=== PATIENT | male | born 1975 | race Caucasian/White ===

== ENCOUNTER 2016-07-02 13:52 | Emergency (ER) | payer SELFPAY ==
[~2016-07-02] VITALS: Ht 165.1 cm; Wt 90.7 kg
[~2016-07-02 13:52] MED LIST: ALBUTEROL0.09 MG/A2 IH; ANTIVERT/2525 MG PO; AUGMENTIN 875875 MG PO; COMPAZINE10 MG PO; DAYPRO600 M1 PO; FLONASE ALLERG9.9 ML NS; IBU-8800 MG PO; Motrin,Rufen800 MG PO; NAPROSYN500 MG PO; NKHM; OTC MEDS; PENICILLIN250 MG PO; PRILOSEC20 M2 PO; Peridex 473 ML473 ML PO; TRAMADOL HCL50 MG PO; ULTRAM50 MG PO; VIBRAMYCIN100 MG PO; ZANTAC 150150 MG PO; ZYRTEC10 MG PO
[2016-07-02 14:49] LABS: BILIRUBIN NEGATIVE (NEGATIVE); BLOOD TRACE-INTACT (NEGATIVE); CLARITY CLEAR (CLEAR); COLOR YELLOW (YELLOW); GLUCOSE NEGATIVE (NEGATIVE); KETONE NEGATIVE (NEGATIVE); LEUKO ESTERASE 1+ (NEGATIVE); NITRITE NEGATIVE (NEGATIVE); PH 5.5 (5.0-9.0); PROTEIN NEGATIVE (NEGATIVE); SPECIFIC GRAVITY 1.025 (1.005-1.030); UROBILINOGEN 0.2 E.U./dl (0.2-1.0)
[2016-07-02 15:02] LABS: MUCOUS TRACE; URINE REFLEX COMMENT YES (NO)
[2016-07-02 15:35] LABS: BASO % 0.5 % (0.0-1.0); EOS # 0.4 10*3/uL (0.0-0.4); EOS % 4.8 % (1.0-4.0); HEMATOCRIT 47.7 % (42.0-52.0); HEMOGLOBIN 16.7 g/dl (14.0-18.0); LYMPH # 2.7 10*3/uL (1.3-4.4); LYMPH % 33.7 % (27.0-41.0); MEAN CELL VOLUME 96.4 fl (80.0-94.0); MEAN CORPUSCULAR HGB 33.7 pg (27.0-31.0); MEAN PLATELET VOLUME 10.3 fl (9.6-12.3); MONO # 0.6 10*3/uL (0.1-1.0); MONO % 7.6 % (3.0-9.0); NEUT # 4.3 10*3/uL (2.3-7.9); PLATELET COUNT AUTOMATED 187 10*3/uL (130-400); RED BLOOD COUNT 4.95 10*6/uL (4.50-5.90); RED CELL DISTRI WIDTH 12.1 % (0-14.5); WHITE BLOOD COUNT 8.1 10*3/uL (4.8-10.8)
[2016-07-02 15:51] LABS: ALKALINE PHOSPHATASE 52 U/L (45-117); BILIRUBIN, TOTAL 0.9 mg/dl (0.2-1.0); BUN 13 mg/dl (7-24); CARBON DIOXIDE 25 mmol/L (21-32); CHLORIDE 107 mmol/L (98-107); EST GLOM FILT AFRICAN AMERICAN > 60 ml/min; GLUCOSE 92 mg/dL (65-99); POTASSIUM 4.2 mmol/L (3.5-5.1); SGOT/AST 54 IU/L (3-35); SGPT/ALT 111 U/L (12-78); SODIUM 141 mmol/L (136-145); TOTAL PROTEIN 8.1 gm/dL (6.4-8.2)
[2016-07-02] MEDS ORDERED: ANAPROX DS550 MG PO (16:34)
[2016-07-02] MEDS ORDERED: OMNICEF300 MG PO (16:48)
== END 2016-07-02 17:10 | disposition home or self-care (01) ==
LOC: ED 13:52
PROVIDERS: Physician Assistant
DX: N30.01 Acute cystitis with hematuria (principal)

== ENCOUNTER 2017-08-12 14:40 | Emergency (ER) | payer SELFPAY ==
[~2017-08-12] VITALS: Ht 165.1 cm; Wt 90.7 kg
[~2017-08-12 14:40] MED LIST changes: +ANAPROX DS550 MG PO; +OMNICEF300 MG PO
[2017-08-12 15:13] LABS: BASO % 0.4 % (0.0-1.0); EOS # 0.2 10*3/uL (0.0-0.4); EOS % 1.9 % (1.0-4.0); HEMATOCRIT 47.1 % (42.0-52.0); HEMOGLOBIN 16.3 g/dl (14.0-18.0); LYMPH # 1.9 10*3/uL (1.3-4.4); LYMPH % 16.7 % (27.0-41.0); MEAN CELL VOLUME 95.3 fl (80.0-94.0); MEAN CORPUSCULAR HGB CONC 34.6 g/dl (33.0-37.0); MONO # 0.6 10*3/uL (0.1-1.0); MONO % 5.3 % (3.0-9.0); NEUT # 8.6 10*3/uL (2.3-7.9); NEUT % 75.3 % (47.0-73.0); PLATELET COUNT AUTOMATED 190 10*3/uL (130-400); RED BLOOD COUNT 4.94 10*6/uL (4.50-5.90); RED CELL DISTRI WIDTH 11.9 % (0-14.5); WHITE BLOOD COUNT 11.4 10*3/uL (4.8-10.8)
[2017-08-12 15:22] LABS: ACT PARTIAL THROMBO TIME 20.3 SECONDS (20.8-31.5)
[2017-08-12 15:30] LABS: ALBUMIN 4.1 gm/dl (3.1-4.5); ALKALINE PHOSPHATASE 63 U/L (45-117); BUN 14 mg/dl (7-24); CHLORIDE 105 mmol/L (98-107); CREATININE 1.31 mg/dL (0.70-1.30); POTASSIUM 4.2 mmol/L (3.5-5.1); SGOT/AST 59 IU/L (3-35); SGPT/ALT 112 U/L (12-78); SODIUM 137 mmol/L (136-145); TOTAL PROTEIN 8.5 gm/dL (6.4-8.2)
[2017-08-12 16:27] LABS: BILIRUBIN NEGATIVE (NEGATIVE); BLOOD NEGATIVE (NEGATIVE); CLARITY CLEAR (CLEAR); COLOR YELLOW (YELLOW); GLUCOSE NEGATIVE (NEGATIVE); KETONE NEGATIVE (NEGATIVE); LEUKO ESTERASE NEGATIVE (NEGATIVE); NITRITE NEGATIVE (NEGATIVE); PH 5.5 (5.0-9.0); SPECIFIC GRAVITY >= 1.030 (1.005-1.030); UROBILINOGEN 0.2 E.U./dl (0.2-1.0)
[2017-08-12 16:34] LABS: BACTERIA 1+
[2017-08-12 16:36] LABS: URINE AMPHETAMINES < 1000 (1000ng/ml); URINE BARBITURATES < 200 (200ng/ml); URINE BENZODIAZEPINES < 200 (200ng/ml); URINE CANNABINOIDS (THC) > 50 (50ng/ml); URINE COCAINE > 300 (300ng/ml); URINE METHADONE < 300 (300ng/ml); URINE OPIATES > 300 (300ng/ml); URINE PHENCYCLIDINE < 25 (25ng/ml)
[2017-08-12] MEDS ORDERED: NORCO 5-325 TA1 EACH PO (18:40)
== END 2017-08-12 19:03 | disposition home or self-care (01) ==
LOC: ED 14:40
PROVIDERS: Physician Assistant
DX: S32.018A Other fracture of first lumbar vertebra, initial encounter for closed fracture (principal); S32.028A Other fracture of second lumbar vertebra, initial encounter for closed fracture; S32.038A Other fracture of third lumbar vertebra, initial encounter for closed fracture; S32.048A Other fracture of fourth lumbar vertebra, initial encounter for closed fracture; R07.89 Other chest pain; R10.84 Generalized abdominal pain; Z98.890 Other specified postprocedural states; Z79.899 Other long term (current) drug therapy; W20.8XXA Other cause of strike by thrown, projected or falling object, initial encounter; Y93.89 Activity, other specified; Y92.89 Other specified places as the place of occurrence of the external cause; Y99.9 Unspecified external cause status

== ENCOUNTER 2019-07-15 09:55 | Emergency (ER) | payer SELFPAY ==
[~2019-07-15] VITALS: Ht 165.1 cm; Wt 90.7 kg
[~2019-07-15 09:55] MED LIST changes: +NORCO 5-325 TA1 EACH PO
[2019-07-15] MEDS ORDERED: NORCO 5-325 TA1 EACH PO (11:43)
[2019-07-15] MEDS ORDERED: DOXYCYCLINE100 M3 PO (11:43)
== END 2019-07-15 11:55 | disposition home or self-care (01) ==
LOC: ED 09:55
DX: L05.01 Pilonidal cyst with abscess (principal)

== ENCOUNTER 2019-12-22 22:05 | Emergency (ER) | payer SELFPAY ==
[~2019-12-22] VITALS: Ht 172.7 cm; Wt 95.3 kg
[~2019-12-22 22:05] MED LIST changes: +DOXYCYCLINE100 M3 PO
[2019-12-22] MEDS ORDERED: SEPTDS PO (22:21)
[2019-12-22] MEDS ORDERED: Motrin,Rufen800 MG PO (22:21)
[2019-12-22] MEDS ORDERED: CEFADROXIL500 M1 PO (22:21)
== END 2019-12-22 22:30 ==
LOC: ED 22:05
DX: L02.31 Cutaneous abscess of buttock (principal)

== ENCOUNTER → 2020-05-20 | Outpatient (CLI) | payer SELFPAY ==
[~2020-05-20] MED LIST changes: +CEFADROXIL500 M1 PO; +PENICILLIN-VK500 MG PO; +SEPTDS PO
== END | disposition home or self-care (01) ==
LOC: COVID19 11:12
PROVIDERS: ATTEND Internal Medicine
DX: Z20.828 Contact with and (suspected) exposure to other viral communicable diseases (principal)

== ENCOUNTER 2020-07-02 10:44 | Emergency (ER) | payer SELFPAY ==
[~2020-07-02] VITALS: Wt 90.7 kg
[~2020-07-02 10:44] MED LIST changes: -PENICILLIN-VK500 MG PO
[2020-07-02] MEDS ORDERED: Motrin,Rufen800 MG PO (14:05)
[2020-07-02] MEDS ORDERED: PENICILLIN-VK500 MG PO (14:05)
== END 2020-07-02 14:23 | disposition home or self-care (01) ==
LOC: ED 10:44
DX: S02.5XXA Fracture of tooth (traumatic), initial encounter for closed fracture (principal); K02.9 Dental caries, unspecified; Z79.899 Other long term (current) drug therapy; Z79.2 Long term (current) use of antibiotics; X58.XXXA Exposure to other specified factors, initial encounter; Y93.89 Activity, other specified; Y92.89 Other specified places as the place of occurrence of the external cause; Y99.8 Other external cause status

== ENCOUNTER → 2022-07-09 | Outpatient (CLI) | payer MEDICARE, MEDICAID ==
[~2022-07-09] MED LIST changes: +PENICILLIN-VK500 MG PO
[2022-07-09 12:53] LABS: BASO % 0.5 % (0.0-1.0); EOS # 0.2 10*3/uL (0.0-0.4); EOS % 2.4 % (1.0-4.0); HEMATOCRIT 48.5 % (42.0-52.0); LYMPH # 2.4 10*3/uL (1.3-4.4); LYMPH % 31.8 % (27.0-41.0); MEAN CORPUSCULAR HGB 33.8 pg (27.0-31.0); MEAN CORPUSCULAR HGB CONC 34.8 g/dl (33.0-37.0); MEAN PLATELET VOLUME 10.1 fl (9.6-12.3); MONO # 0.5 10*3/uL (0.1-1.0); MONO % 6.4 % (3.0-9.0); NEUT # 4.5 10*3/uL (2.3-7.9); NEUT % 58.6 % (47.0-73.0); PLATELET COUNT AUTOMATED 176 10*3/uL (130-400); RED CELL DISTRI WIDTH 12.3 % (0-14.5); WHITE BLOOD COUNT 7.6 10*3/uL (4.8-10.8)
[2022-07-09 13:13] LABS: ALKALINE PHOSPHATASE 56 U/L (46-116); BUN 9 mg/dl (9-23); CHLORIDE 102 mmol/L (98-107); CHOLESTEROL 303 mg/dL (<200); POTASSIUM 4.2 mmol/L (3.4-5.1); SGPT/ALT 53 U/L (10-49); TOTAL PROTEIN 7.8 gm/dL (6.0-8.0)
[2022-07-09 13:14] LABS: LDL CHOLESTEROL 216 mg/dL (9-159)
== END | disposition home or self-care (01) ==
LOC: RESCLI 12:24
PROVIDERS: Internal Medicine; ATTEND Family Medicine
DX: L05.01 Pilonidal cyst with abscess (principal); K21.9 Gastro-esophageal reflux disease without esophagitis; Z12.11 Encounter for screening for malignant neoplasm of colon; E66.9 Obesity, unspecified; I10 Essential (primary) hypertension; E78.2 Mixed hyperlipidemia; R74.01 Elevation of levels of liver transaminase levels; Z68.36 Body mass index [BMI] 36.0-36.9, adult; Z72.89 Other problems related to lifestyle; Z98.890 Other specified postprocedural states; Z82.3 Family history of stroke

== ENCOUNTER → 2022-08-13 | Outpatient (CLI) | payer MEDICARE, MEDICAID ==
[~2022-08-13] MED LIST changes: +ATORVASTATIN CA40 M1 PO; +CARAFATE1 G1 PO; +PANTOPRAZOLE SO40 MG PO
== END | disposition home or self-care (01) ==
LOC: US 01:12
PROVIDERS: ATTEND Internal Medicine
DX: R74.01 Elevation of levels of liver transaminase levels (principal)

== ENCOUNTER → 2022-08-14 | Day surgery (SDC) | payer MEDICARE, MEDICAID ==
[~2022-08-14] VITALS: Ht 152.4 cm; Wt 99.8 kg
[2022-08-14 06:52] VITALS: BP 143/67
[2022-08-14 07:48] VITALS: BP 131/78
[2022-08-14 08:03] VITALS: BP 128/76
[2022-08-14 08:11] VITALS: BP 150/88
== END | disposition home or self-care (01) ==
LOC: SDC 08-11 08:00
PROVIDERS: ATTEND Surgery
DX: Z12.11 Encounter for screening for malignant neoplasm of colon (principal); K29.50 Unspecified chronic gastritis without bleeding; K63.5 Polyp of colon; K29.80 Duodenitis without bleeding; E78.00 Pure hypercholesterolemia, unspecified; K21.9 Gastro-esophageal reflux disease without esophagitis; L05.01 Pilonidal cyst with abscess; Z98.42 Cataract extraction status, left eye; Z98.41 Cataract extraction status, right eye; Z79.899 Other long term (current) drug therapy

== ENCOUNTER → 2022-12-11 | Day surgery (SDC) | payer MEDICARE, MEDICAID ==
[~2022-12-11] VITALS: Ht 165.1 cm; Wt 90.7 kg
[~2022-12-11] MED LIST changes: +COLACE100 MG PO; +HYDROCODONE-AC1 EAC1 PO; +ONDANSETRON HYDR4 M1 PO
[2022-12-11 10:04] VITALS: BP 138/69
[2022-12-11 11:11] VITALS: BP 136/72
[2022-12-11 11:26] VITALS: BP 129/69
[2022-12-11 11:41] VITALS: BP 140/83
[2022-12-11 11:55] VITALS: BP 136/72
== END | disposition home or self-care (01) ==
LOC: SDC 12-08 14:00
PROVIDERS: ATTEND Surgery
DX: L05.01 Pilonidal cyst with abscess (principal); K21.9 Gastro-esophageal reflux disease without esophagitis; Z79.899 Other long term (current) drug therapy

== ENCOUNTER 2022-12-19 04:19 | Emergency (ER) | payer MEDICARE, MEDICAID ==
[2022-12-19] MEDS ORDERED: SEPTDS PO (08:01)
== END 2022-12-19 08:05 | disposition home or self-care (01) ==
LOC: ED 04:19
DX: L05.01 Pilonidal cyst with abscess (principal); Z79.899 Other long term (current) drug therapy; Z98.890 Other specified postprocedural states

== ENCOUNTER 2023-09-05 16:13 | Emergency (ER) | payer MEDICARE, MEDICAID ==
[~2023-09-05] VITALS: Ht 165.1 cm; Wt 99.8 kg
[2023-09-05] MEDS ORDERED: MELOXICAM15 MG PO (16:24)
[2023-09-05] MEDS ORDERED: AMOX-CLAV 875-1 EACH PO (16:24)
[2023-09-05] MEDS ORDERED: Acetaminophen/Oxycodone 5 MG/325 MG TABLET PO ONE (16:25)
[2023-09-05] MEDS ORDERED: Amoxicillin/Clavulanate Pota 875 MG TAB PO ONE (16:25)
== END 2023-09-05 16:31 | disposition home or self-care (01) ==
LOC: ED 16:13
DX: K04.7 Periapical abscess without sinus (principal); Z79.899 Other long term (current) drug therapy; Z79.2 Long term (current) use of antibiotics; Z98.890 Other specified postprocedural states